=== PATIENT | male | born 1975 | race African-American/Black ===

== ENCOUNTER 2019-10-16 12:38 | Inpatient (IN) | payer OTHER ==
[2019-10-16 14:01] VITALS: BMI 22.4
--- NOTE | 2019-10-16 14:49 | HP ---
CIWA Score Nausea/Vomitin-No Nausea/No Vomiting Muscle Tremors: None Anxiety: 0-No Anxiety, at Ease Agitation: 0-Normal Activity Paroxysmal Sweats: No Perspiration Orientation: 0-Oriented Tacttile Disturbances: 0-None Auditory Disturbances: 0-None Visual Disturbances: 0-None Headache: 0-None Present CIWA-Ar Total Score: 0 - Admission Criteria OASAS Guidelines: Admission for Medically Managed Detox: Requires at least one of the followin. CIWA greater than 12 2. Seizures within the past 24 hours 3. Delirium tremens within the past 24 hours 4. Hallucinations within the past 24 hours 5. Acute intervention needed for co occurring medical disorder 6. Acute intervention needed for co occurring psychiatric disorder 7. Severe withdrawal that cannot be handled at a lower level of care (continued vomiting, continued diarrhea, abnormal vital signs) requiring intravenous medication and/or fluids 8. Admitting History and Physical - Smoking History Smoking history: Current every day smoker Have you smoked in the past 12 months: Yes Admission ROS [facility] Chief Complaint: here for rehab for alcohol and cocaine use Allergies/Adverse Reactions: Allergies Allergy/AdvReac Type Severity Reaction Status Date / Time milk Allergy Intermediate Verified 10/16/19 13:54 tomato Allergy Intermediate Verified 10/16/19 13:54 History of Present Illness: 44 yo with h/o back pain on oxycodone and with h/o depression on meds here for rehab. Pt goes to outpt program for substance abuse Rx- [facility] , was noted to have Utox pos for cocaine and alcohol. Pt was asked to come to inpt rehab. Pt states last cocaine use last week. Last alcohol use yesterday- 1 beer. CHIQUITA- neg, Utox pos only for oxy. Pt does not have any withdrawal Sx. Pt is understands that he will not get endocets in rehab and states he will be fine without it. [facility]- [facility] PCP- [facility]- Endocet #90 10mg/325mg #90 (gets it every month)- d/w pt that this will not be given in rehab- pt states he knows this - Ebola screening Have you traveled outside of the country in the last 21 days: No Have you had contact with anyone from an Ebola affected area: No Do you have a fever: No - Review of Systems Constitutional: No Symptoms Reported EENT: reports: No Symptoms Reported Respiratory: reports: No Symptoms reported Cardiac: reports: No Symptoms Reported GI: reports: No Symptoms Reported : reports: No Symptoms Reported Musculoskeletal: reports: No Symptoms Reported Integumentary: reports: No Symptoms Reported Neuro: reports: No Symptoms reported Endocrine: reports: No Symptoms Reported Hematology: reports: No Symptoms Reported Psychiatric: reports: No Sypmtoms Reported Other Systems: Reviewed and Negative Patient History - Patient Medical History Hx Depression: Yes Other Medical History: back pain - Patient Surgical History Past Surgical History: No - PPD History PPD to be Administered?: Yes - Smoking Cessation Smoking history: Current every day smoker Have you smoked in the past 12 months: Yes Aproximately how many cigarettes per day: 10 Hx Chewing Tobacco Use: No Initiated information on smoking cessation: Yes 'Breaking Loose' booklet given: 10/16/19 - Substance & Tx. History Hx Alcohol Use: Yes Substance Use Type: Cocaine Hx Substance Use Treatment: Yes - Substances abused Alcohol Substance route: Oral Frequency: 1-2 times per week Amount used: beer- 6cans-12oz Age of first use: 14 Date of last use: 10/15/19 Cocaine Substance route: Inhalation Frequency: 1-3 times last 30 days Amount used: $20 Age of first use: 28 Date of last use: 10/11/19 Admission Physical Exam [facility] - Vital Signs Vital Signs: Vital Signs - 24 hr 10/16/19 13:54 Temperature 98.1 F Pulse Rate 99 H Respiratory 17 Rate Blood Pressure 141/82 - Physical General Appearance: Yes: Within Normal Limits, Thin HEENTM: Yes: Within Normal Limits, Hearing grossly Normal, Normal Voice Respiratory: Yes: Within Normal Limits, Lungs Clear Neck: Yes: Within Normal Limits, No masses,lesions,Nodules Cardiology: Yes: Within Normal Limits, Regular Rhythm, Regular Rate Abdominal: Yes: Within Normal Limits, Normal Bowel Sounds Back: Yes: Within Normal Limits Musculoskeletal: Yes: Within Normal Limits Extremities: Yes: Within Normal Limits Neurological: Yes: Within Normal Limits, Fully Oriented, Disoriented Lymphatic: Yes: Within Normal Limits - Diagnostic (1) Back pain Current Visit: Yes Status: Acute Breathalyzer - Breathalyzer Breathalyzer: 0 Urine Drug Screen - Test Device Lot number: [id number] Expiration date: 06/07/21 - Control Is test valid?: Yes - Results Drug screen NEGATIVE: No Urine drug screen results: OXY-Oxycodone Inpatient Rehab Admission - Rehab Decision to Admit Inpatient rehab admission?: Yes - Initial Determination Are CD services needed?: Yes Free of communicable disease: Yes Not in need of hospitalization: Yes - Rehab Admission Criteria Previous failed treatment: Yes Poor recovery environment: Yes Comorbidities: Yes Lacks judgement: Yes Patient is meeting Inpatient Rehab admission criteria:: Yes (alcohol and cocaine use-)
[2019-10-16] MEDS ORDERED: LOPERAMIDE HCL 2 MG CAPSULE PO PRN (15:01)
[2019-10-16] MEDS ORDERED: P-EPHED 60MG/TRIPROLIDI 2.5MG TABLET PO PRN (15:01)
[2019-10-16] MEDS ORDERED: MAG HYDROX/AL HYDROX/SIMETH 30 ML UNIT-DOSE CUP PO PRN (15:01)
[2019-10-16] MEDS ORDERED: guaiFENesin 200 MG/10 ML 10 ML UNIT-DOSE CUPS PO PRN (15:01)
[2019-10-16] MEDS ORDERED: ACETAMINOPHEN 325 MG TABLET (FP) PO PRN (15:01)
[2019-10-16] MEDS ORDERED: IBUPROFEN 400 MG TABLET (FP) PO PRN (15:01)
[2019-10-16] MEDS ORDERED: MAGNESIUM CITRATE 300 ML BOTTLE PO PRN (15:01)
[2019-10-16] MEDS ORDERED: MENTHOL/PHENOL 1 EACH UD MM PRN (15:01)
[2019-10-16] MEDS ORDERED: NICOTINE POLACRILEX 2 MG GUM BC PRN (15:01)
[2019-10-16] MEDS ORDERED: TUBERCULIN PPD 5 TU/0.1ML VIAL ID ONE (20:11)
[2019-10-16] MEDS: THIAMINE HCL 100 MG TABLET (FP) PO SCH (21:04)
[2019-10-16] MEDS ORDERED: MELATONIN 5 MG TABLETS PO PRN (22:00)
--- NOTE | 2019-10-17 08:21 | CONSULT ---
[facility] Psychiatric Consult - Data Date of interview: 10/17/19 Admission source: [facility] Identifying data: Mr Carranza is a 44 years old single Black male, father of 3 children, unemployed with no source of income, living with family seeking detox treatment for alcohol and cocaine Substance Abuse History: Reports history of alcohol and crack cocaine use. Refer to addiction counselor's summary for further information Medical History: Significant for back pain Psychiatric History: Reports that his first psychiatric contact occured in July 2019 while in outpatient treatment at [facility]. He was diagnosed with depression and prescribed Cymbalta 30 mg/day. He has been in treatment there since and taking same medication. Denies previous psychiatric hospitalization or suicidal attempt. At present, denies experiencing depressive symptoms, S/H ideations. Physical/Sexual Abuse/Trauma History: Denies history of abuse as a child or DV relationship as an adult Mental Status Exam - Mental Status Exam Alert and Oriented to: Time, Place, Person Cognitive Function: Fair Patient Appearance: Well Groomed Mood: Hopeful, Euthymic Patient Behavior: Cooperative Speech Pattern: Clear Voice Loudness: Normal Thought Process: Intact, Goal Oriented Thought Disorder: Not Present Hallucinations: Denies Suicidal Ideation: Denies Homicidal Ideation: Denies Insight/Judgement: Fair Appetite: Good Muscle strength/Tone: Normal Gait/Station: Normal Psychiatric Findings - Problem List ([place] 1, 2,3) (1) Depressive disorder Current Visit: Yes Status: Chronic (2) MDD (major depressive disorder) Current Visit: Yes Status: Ruled-out (3) Substance induced mood disorder Current Visit: Yes Status: Ruled-out (4) Alcohol dependence Current Visit: Yes Status: Acute (5) Cocaine abuse Current Visit: Yes Status: Acute (6) Nicotine dependence Current Visit: No Status: Chronic Qualifiers: Nicotine product type: cigarettes (7) Back pain Current Visit: Yes Status: Chronic - Initial Treatment Plan Initial Treatment Plan: Continue inpatient rehabilitation
[2019-10-17] MEDS: DULoxetine HCL 30 MG CAPSULE.DR PO SCH (10:28)
[2019-10-17] MEDS: PRENATAL VITAMINS W/ FOLIC ACID TABLET (FP) PO SCH (10:28)
--- NOTE | 2019-10-17 13:31 | PN ---
S Progress Note Note: Pt is a 44 y/o male with a hx of alcohol and cocaine use disorder admitted to rehab yesterday. Pt reports he has a PCP, Dr. Cerrato at [address], [place]. MHx:Borderline Hypercholesterolemia(states he is suppose to follow up with his PCP after rehab) Psych Hx:Depression/anxiety Vital Signs - 24 hr 10/16/19 10/16/19 10/17/19 13:54 16:17 00:57 Temperature 98.1 F 98 F Pulse Rate 99 H 98 H Respiratory 17 18 20 Rate Blood Pressure 141/82 138/89 10/17/19 10/17/19 03:30 07:15 Temperature 97.7 F Pulse Rate 78 Respiratory 18 18 Rate Blood Pressure 131/83 Pt refused blood work here(states he has called for his medical records-labs to be faxed to this facility) Alert o x 3 nad oob ambulating with steady gait A/P new rehab pt Maintain safety increase po fluids follow up with psych consult done today.
[2019-10-17] MEDS: COLLOIDAL OATMEAL 1 BAR EACH TP PRN (20:19)
[2019-10-17] MEDS: MINERAL OIL/PETROLAT/WATER TOPICAL CREAM 113 GM JAR TP SCH (20:20)
[2019-10-17] MEDS: THIAMINE HCL 100 MG TABLET (FP) PO SCH (21:01)
[2019-10-18] MEDS: PRENATAL VITAMINS W/ FOLIC ACID TABLET (FP) PO SCH (10:07)
[2019-10-18] MEDS: MINERAL OIL/PETROLAT/WATER TOPICAL CREAM 113 GM JAR TP SCH (10:09)
[2019-10-18] MEDS: DULoxetine HCL 30 MG CAPSULE.DR PO SCH (10:10)
[2019-10-18] MEDS: THIAMINE HCL 100 MG TABLET (FP) PO SCH (21:06)
[2019-10-19] MEDS: DULoxetine HCL 30 MG CAPSULE.DR PO SCH (09:53)
[2019-10-19] MEDS: PRENATAL VITAMINS W/ FOLIC ACID TABLET (FP) PO SCH (09:53)
[2019-10-19] MEDS: MINERAL OIL/PETROLAT/WATER TOPICAL CREAM 113 GM JAR TP SCH (09:54)
[2019-10-19] MEDS ORDERED: MINERAL OIL/PETROLAT/WATER TOPICAL CREAM 113 GM JAR TP PRN (10:09)
--- NOTE | 2019-10-19 10:09 | PN ---
[facility] Progress Note Note: Pt requesting Eucerin cream BID when he takes a shower.
[2019-10-19] MEDS: MELATONIN 5 MG TABLETS PO SCH (21:08)
[2019-10-19] MEDS: THIAMINE HCL 100 MG TABLET (FP) PO SCH (21:08)
[2019-10-20] MEDS: DULoxetine HCL 30 MG CAPSULE.DR PO SCH (10:02)
[2019-10-20] MEDS: PRENATAL VITAMINS W/ FOLIC ACID TABLET (FP) PO SCH (10:02)
[2019-10-20] MEDS: MAGNESIUM HYDROX 2400MG/30ML ORAL SUSPENSION 30 ML CUP PO PRN (17:34)
[2019-10-20] MEDS: THIAMINE HCL 100 MG TABLET (FP) PO SCH (21:03)
[2019-10-20] MEDS: MELATONIN 5 MG TABLETS PO SCH (21:03)
[2019-10-21] MEDS: PRENATAL VITAMINS W/ FOLIC ACID TABLET (FP) PO SCH (09:28)
[2019-10-21] MEDS: DULoxetine HCL 30 MG CAPSULE.DR PO SCH (09:28)
[2019-10-21] MEDS: MAGNESIUM HYDROX 2400MG/30ML ORAL SUSPENSION 30 ML CUP PO PRN (09:29)
[2019-10-21] MEDS: THIAMINE HCL 100 MG TABLET (FP) PO SCH (21:21)
[2019-10-21] MEDS: MELATONIN 5 MG TABLETS PO SCH (21:21)
[2019-10-22] MEDS: PRENATAL VITAMINS W/ FOLIC ACID TABLET (FP) PO SCH (09:41)
[2019-10-22] MEDS: DULoxetine HCL 30 MG CAPSULE.DR PO SCH (09:41)
[2019-10-22 11:27] LABS: EPI CELLS 0.9 /HPF (0-5/HPF); HYALINE CASTS 0 /lpf (0-8); PH,URINE 5.5 (5.0-8.0); URINE APPEARANCE CLEAR; URINE BACTERIA 1.2 /hpf (NEGATIVE); URINE BILIRUBIN NEGATIVE (NEGATIVE); URINE COLOR YELLOW; URINE GLUCOSE (UA) NEGATIVE (NEGATIVE); URINE KETONE NEGATIVE (NEGATIVE); URINE LEUK ESTERASE TRACE (NEGATIVE); URINE NITRITE NEGATIVE (NEGATIVE); URINE PROTEIN NEGATIVE (NEGATIVE); URINE RBC 0 /hpf (0-4); URINE UROBILINOGEN 0.2 mg/dL (0.2-1.0); URINE WBC 2 /hpf (0-5)
[2019-10-22] MEDS: MELATONIN 5 MG TABLETS PO SCH (21:04)
[2019-10-22] MEDS: THIAMINE HCL 100 MG TABLET (FP) PO SCH (21:04)
[2019-10-22] MEDS: COLLOIDAL OATMEAL 1 BAR EACH TP PRN (21:04)
[2019-10-23] MEDS: PRENATAL VITAMINS W/ FOLIC ACID TABLET (FP) PO SCH (10:05)
[2019-10-23] MEDS: DULoxetine HCL 30 MG CAPSULE.DR PO SCH (10:05)
[2019-10-23] MEDS: hydrOXYzine PAMOATE 25 MG CAPSULE (FP) PO PRN (21:03)
[2019-10-23] MEDS: MELATONIN 5 MG TABLETS PO SCH (21:03)
[2019-10-23] MEDS: THIAMINE HCL 100 MG TABLET (FP) PO SCH (21:03)
[2019-10-24] MEDS: PRENATAL VITAMINS W/ FOLIC ACID TABLET (FP) PO SCH (09:50)
[2019-10-24] MEDS: DULoxetine HCL 30 MG CAPSULE.DR PO SCH (09:50)
--- NOTE | 2019-10-24 15:03 | DS ---
[facility] Rehab Discharge Summary - [facility] Rehab Discharge Summary Admission Date: 10/16/19 Discharge Date: 10/25/19 - History Present History: Alcohol dependence, Cocaine dependence Additional Comments: Pt is a 44 y/o male with a hx of QUOC-alcohol and cocaine admitted to rehab and scheduled to discharge tomorrow, 10/25/19. Pt has met with his counselor, Ms Lennonerton and has been referred to [facility] in the [place] for CD aftercare. Pt has a primary care provider, Dr. Jaz Cerrato at [address] [place] [address]. Pertinent Past History: Borderline Hypercholesterolemia(no meds) Chronic back pain Psych Hx:Depression/anxiety - Discharge Physical Exam Vital Signs: Vital Signs Temperature 97.8 F 10/24/19 06:43 Pulse Rate 105 H 10/24/19 06:43 Respiratory Rate 18 10/24/19 06:43 Blood Pressure 127/81 10/24/19 06:43 O2 Sat by Pulse Oximetry (%) Alert o x 3 nad oob ambulating with steady gait cardiac:s1 s2,rrr lungs:cta,stefany. abdomen:soft,flat,+bs,nt extremities/skin:no edema,full ROM/weight bearing;skin intact. Pertinent Admission Physical Exam Findings: Laboratory Tests 10/22/19 08:20 Urine Color Yellow Urine Appearance Clear Urine pH 5.5 Ur Specific [place] 1.015 Urine Protein Negative Urine Glucose (UA) Negative Urine Ketones Negative Urine Blood Negative Urine Nitrite Negative Urine Bilirubin Negative Urine Urobilinogen 0.2 Ur Leukocyte Esterase Trace Urine WBC (Auto) 2 Urine RBC (Auto) 0 Urine Casts (Auto) 0 U Epithel Cells (Auto) 0.9 Urine Bacteria (Auto) 1.2 Other lab results in hardcopy faxed from PCP during this admission. - Treatment Discharge Condition: Discharge condition good Hospital Course: rehabilitated safely and responded well CD aftercare referral accepted - Medication Discharge Medications: Ambulatory Orders Duloxetine HCl 30 mg PO DAILY 10/16/19 Duloxetine HCl [Cymbalta -] 30 mg PO DAILY #30 capsule. 10/25/19 - Medication-Assisted Treatment (MAT) Medication-Assisted Treatment (MAT): No - Discharge Instructions Diet, activity, other medical instructions: Diet:Regular Activity: ood ad jong Other medical instructions:follow up with CD aftercare at [facility] as scheduled. follow up with primary care provider Dr. Jaz Cerrato for medical management 1- 2 weeks after discharge. - Diagnosis (1) Alcohol dependence Current Visit: Yes Status: Chronic Qualifiers: Substance use status: uncomplicated Qualified Code(s): F10.20 - Alcohol dependence, uncomplicated (2) Cocaine abuse Current Visit: Yes Status: Chronic (3) Back pain Current Visit: Yes Status: Chronic Qualifiers: Back pain location: low back pain (4) Nicotine dependence Current Visit: Yes Status: Chronic Qualifiers: Nicotine product type: cigarettes Substance use status: uncomplicated Qualified Code(s): F17.210 - Nicotine dependence, cigarettes, uncomplicated - Follow-up Referral Minutes to complete discharge: 20 - AMA Did Patient Leave Against Medical Advice: No
[2019-10-24] MEDS: MELATONIN 5 MG TABLETS PO SCH (21:06)
[2019-10-24] MEDS: THIAMINE HCL 100 MG TABLET (FP) PO SCH (21:06)
[2019-10-24] MEDS: hydrOXYzine PAMOATE 25 MG CAPSULE (FP) PO PRN (21:06)
[2019-10-25 06:58] VITALS: BP 144/96; PULSE 96; TEMP 97.3
--- NOTE | 2019-10-25 08:50 | PN ---
S Progress Note Note: Psychiatric nurse practitioner note: Patient scheduled for discharge today. A 30 day prescription of Cymbalta 30mg DR was electronically sent to [facility] pharmacy, [address] [place] [address].
--- NOTE | 2019-10-25 09:51 | PN ---
S Progress Note Note: Pt is discharging today as scheduled. Pt seen by provider sitting on chair at nursing station awaiting to sign discharge papers. Vital Signs - 24 hr 10/25/19 10/25/19 10/25/19 00:30 03:30 06:57 Temperature 97.3 F L Pulse Rate 96 H Respiratory 18 18 18 Rate Blood Pressure 144/96 Alert o x 3,Denies s/h/i nad oob ambulating with steady gait cardiac:s1 s2,rrr lungs:cta,stefany. A/P Medically stable D/C pt today. F/u with aftercare/primary care as recommended.
== END 2019-10-25 09:15 | disposition home or self-care (01) | DRG 772 ==
LOC: YASAS 12:38 → Y5N 15:25
PROVIDERS: ADMIT Neuromusculoskeletal Medicine & OMM; ATTEND Neuromusculoskeletal Medicine & OMM
PROC: HZ42ZZZ Group Counseling for Substance Abuse Treatment, Cognitive-Behavioral (ICD-10-PCS; principal; 2019-10-16)
DX: F10.20 Alcohol dependence, uncomplicated (principal); F14.20 Cocaine dependence, uncomplicated; F17.210 Nicotine dependence, cigarettes, uncomplicated; F32.9 Major depressive disorder, single episode, unspecified; M54.5 Low back pain; G89.29 Other chronic pain; Z91.011 Allergy to milk products; Z91.018 Allergy to other foods
CPT/HCPCS: 81003